=== PATIENT | female | born 1935 | race Caucasian/White ===

== ENCOUNTER → 2017-12-11 | Day surgery (SDC) | payer OTHER ==
[2017-12-04 11:41] VITALS: Ht 152.4 cm; Wt 86.4 kg
[~2017-12-11] VITALS: Ht 152.4 cm; Wt 86.4 kg
[~2017-12-11] MED LIST: CHOL1000 PO; CYAN100020 PO; LIDOCAINE HCL 2% 2 ML VIAL (20MG/ML) ONE; MULT-188 PO; NIAC100T18 PO; OMEG10007 PO; PROPOFOL IV EMULSION 10 MG/ML 20 ML VIAL IV ONE; SODIUM CHLORIDE 0.9% 500ML 500 ML IV ONE; [UNRECOGNIZED DRUG - OTHER] PO
--- NOTE | 2017-12-11 09:34 | Endo History and Physical ---
History & Physical Date of Service: Dec 11, 2017. Chief Complaint: history of polyps Referring Physician: Dr. Kvng Rosenthal History of Present Illness H/o polyps Past Surgical History Hx Cardiac Surgery: No Hx Internal Defibrillator: No Hx Pacemaker: No Hx Abdominal Surgery: Yes (APPY, LAP SALPINGO-OOPHERECTOMY) Hx of Implantable Prosthesis: No Hx Post-Op Nausea and Vomiting: No Hx Cancer Surgery: Yes (BILAT. MASTECTOMY) Hx Thoracic Surgery: No Hx Orthopedic: Yes (BILAT. TKA) Hx Urinary Tract Surgery: No Family History Colon CA, Polyp Social History Smoking Status: Former Smoker Hx Substance Use: No Hx Alcohol Use: Yes (1 DRINK 3X WEEKLY (ON AVERAGE)) Allergies Coded Allergies: Morphine (Verified Allergy, Unknown, N/V, 12/04/17) Current Medications Reported Home Medications Medications Dose Route/Sig Max Daily Dose Days Date Category [Memoprove] 90 Mg PO QAM 12/04/17 Reported Niacinamide 100 Mg Tab 2 Tab PO QAM 12/04/17 Reported Vitamin D3 (Cholecalciferol) 1,000 Unit Tab 3 Tab PO QAM 12/04/17 Reported Vitamin B12 (Cyanocobalamin) 1,000 Mcg Tab 1 Tab PO QAM 12/04/17 Reported [place]-3 (Fish Oil) 1 Ea Cap 1 Cap PO QAM 12/04/17 Reported Ocuvite (Multiple Vitamins W/ Minerals) 1 Tab Tab 1 Tab PO QAM 12/04/17 Reported Vital Signs Weight (Kilograms): 86.36 Height (Feet): 5 Height (Inches): 0 Date Time Temp Pulse Resp B/P (MAP) Pulse Ox O2 Delivery O2 Flow Rate FiO2 12/11/17 08:58 36.5 85 18 165/87 (113) 95 Room Air Physical Exam General Appearance: no apparent distress Respiratory/Chest: Auscultation: breath sounds normal Cardiovascular: Heart Auscultation: RRR Abdomen: Bowel Sounds: normal Assessment and Plan H/o polyps - cscopy
--- NOTE | 2017-12-11 10:19 | GI REPORT ---
Procedure Date: 12/11/2017 9:32 AM Procedure: Colonoscopy Indications: High risk colon cancer surveillance: Personal history of colonic polyps Medicines: See the Anesthesia note for documentation of the administered medications Complications: No immediate complications. Estimated Blood Loss: Estimated blood loss: none. Procedure: Pre-Anesthesia Assessment: - ASA Grade Assessment: III - A patient with severe systemic disease. After I obtained informed consent, the scope was passed under direct vision. Throughout the procedure, the patient's blood pressure, pulse, and oxygen saturations were monitored continuously. The scope was introduced through the anus and advanced to the terminal ileum. The colonoscopy was performed without difficulty. The patient tolerated the procedure well. The quality of the bowel preparation was good. Findings: The perianal and digital rectal examinations were significant for hemorrhoids. Multiple small and large-mouthed diverticula were found in the sigmoid colon and descending colon. A 1 mm polyp was found in the cecum. The polyp was sessile. The polyp was removed with a cold biopsy forceps. Resection and retrieval were complete. A few medium-sized angiodysplastic lesions without bleeding were found in the cecum. Hemorrhoids seen on retroflexion. The exam was otherwise without abnormality. Impression: - Diverticulosis in the sigmoid colon and in the descending colon. - One 1 mm polyp in the cecum, removed with a cold biopsy forceps. Resected and retrieved. - A few non-bleeding colonic angiodysplastic lesions. - Hemorrhoids. Recommendation: Given age, would not pursue further CRC screening. Hold ASA and fish oil for 3 days. - Discharge patient to home. Yanet Call M.D. Yanet Call MD 12/11/2017 10:18:52 AM This report has been signed electronically. Note Initiated On: 12/11/2017 9:32 AM I attest to the content of the Intraoperative Record and orders documented therein, exceptions below
--- NOTE | 2017-12-11 10:19 | Discharge Instructions ---
Endoscopy Patient Instructions Date / Procedure(s) Performed Dec 11, 2017. Colonoscopy Allergy Information Coded Allergies: Morphine (Verified Allergy, Unknown, N/V, 12/04/17) Discharge Date / Findings Dec 11, 2017. Polyp, diverticulosis, hemorrhoids, AVMs Medication Instructions Stopped Medication(s): stopped all supplements on Friday Restart Stopped Medication(s): Resume all supplements Provider Instructions Activity Restrictions - No exercising or heavy lifting for 24 hours. - Do not drink alcohol the day of the procedure. - Do not drive a car or operate machinery until the day after the procedure. - Do not make any important decisions or sign important papers in 24 hours after the procedure. Following Day: - Return to full activity which may include returning to work/school. Diet Start your diet with liquids and light foods (jello, soup, juice, toast). Then eat your usual diet if not nauseated. Treatment For Common After Affects For mild abdominal pain, bloating, or excessive gas: - Rest - Eat lightly - Lie on right side Follow-Up Information Follow-up with Dr. Kvng Rosenthal as scheduled Anesthesia Information What You Should Know You have had a procedure that required some medicine to reduce anxiety and discomfort. This treatment is called moderate sedation. After receiving the treatment, you may be sleepy, but you will be able to breathe on your own. The effects of the treatment may last for several hours. Follow these instructions along with Activity/Diet recommendations noted above: * Do NOT do anything where dizziness or clumsiness would be dangerous. * Rest quietly at home today, then you can be up and about tomorrow. * Have a responsible person stay with you the rest of today. * You may have had an I.V. today. If so, you may take the dressing off later today. Recommendations Call your doctor if: * Trouble breathing * Continuous vomiting for more than 24 hours * Temperature above 101 degrees * Severe abdominal pain or bloating * Pain not relieved by pain medicine ordered * There is increased drainage or redness from any incision * A large amount of rectal bleeding greater than 2-3 tablespoons. (If you had a polyp/s removed or have hemorrhoids, a small amount of blood - from the rectum is to be expected.) * You have any unanswered questions or concerns. IN THE EVENT OF A SERIOUS EMERGENCY, GO TO THE NEAREST EMERGENCY ROOM Your discharge instructions were prepared by provider Yanet Butler. Patient Instructions Signature Page Socorro Erazo Patient (or Guardian) Signature/Date: I have read and understand the instructions given to me by my caregivers. Caregiver/RN/Doctor Signature/Date: The above-named patient and/or guardian has received patient instructions on this date. + Original Patient Signature Page (only) stays with chart. Please make copy for patient.
[2017-12-11 10:25] VITALS: BP 113/57; PULSE 64; O2SAT 97
--- NOTE | 2017-12-11 10:25 | Anesthesiology Progress Note ---
Anesthesia Post Op Note Date & Time Dec 11, 2017 at 10:25 Vital Signs Pain Intensity: 0 Vital Signs Past 12 Hours Date Time Temp Pulse Resp B/P (MAP) Pulse Ox O2 Delivery O2 Flow Rate FiO2 12/11/17 10:15 74 18 110/61 (77) 97 Room Air 12/11/17 10:05 79 18 92/57 (69) 96 Room Air 12/11/17 08:58 36.5 85 18 165/87 (113) 95 Room Air Notes Mental Status: alert / awake / arousable, participated in evaluation Pt Amnestic to Procedure: Yes Nausea / Vomiting: adequately controlled Pain: adequately controlled Airway Patency, RR, SpO2: stable & adequate BP & HR: stable & adequate Hydration State: stable & adequate Anesthetic Complications: no major complications apparent
== END | disposition home or self-care (01) ==
LOC: C.GI 08:40
PROVIDERS: ATTEND Internal Medicine Gastroenterology
DX: Z12.11 Encounter for screening for malignant neoplasm of colon (principal); K64.8 Other hemorrhoids; D12.0 Benign neoplasm of cecum; K57.30 Diverticulosis of large intestine without perforation or abscess without bleeding; Q27.33 Arteriovenous malformation of digestive system vessel; Z90.49 Acquired absence of other specified parts of digestive tract; Z90.721 Acquired absence of ovaries, unilateral; Z90.79 Acquired absence of other genital organ(s); Z90.13 Acquired absence of bilateral breasts and nipples; Z85.3 Personal history of malignant neoplasm of breast; Z96.653 Presence of artificial knee joint, bilateral; Z87.891 Personal history of nicotine dependence; Z80.0 Family history of malignant neoplasm of digestive organs